=== PATIENT | male | born 2000 | race African-American/Black ===

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

== ENCOUNTER 2022-06-21 18:52 | Emergency (ER) | payer OTHER, BC ==
[2022-06-21] MEDS ORDERED: KETOROLAC 30 MG/ML INJ ONE (19:46)
--- NOTE | 2022-06-21 20:07 | RAD REPORT ---
EXAM DESCRIPTION: Ribs Right - 06/21/2022 7:58 pm CLINICAL HISTORY: Right rib pain FINDINGS: No fracture is seen
[2022-06-21] MEDS ORDERED: ACETAMINOPHEN 500 MG TAB ONE (20:08)
[2022-06-21] MEDS ORDERED: IBUPROFEN 400 MG TAB ONE (20:09)
[2022-06-21] MEDS ORDERED: IBUPROFEN 200 MG TAB PO ONE (20:09)
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
[2022-06-21 23:08] VITALS: BP 128/83; TEMP 98.7; O2SAT 100
== END 2022-06-21 21:02 | disposition home or self-care (01) ==
LOC: ER 18:52
DX: S06.0X1A Concussion with loss of consciousness of 30 minutes or less, initial encounter (principal); S23.41XA Sprain of ribs, initial encounter
CPT/HCPCS: 99284

== ENCOUNTER 2023-02-13 01:04 | Emergency (ER) | payer BC ==
[2023-02-13] MEDS ORDERED: NA CHLORIDE 0.9% 1,000 ML ONE (01:51)
[2023-02-13] MEDS ORDERED: FAMOTIDINE 20 MG/2 ML VIAL IV ONE (01:51)
[2023-02-13] MEDS ORDERED: ONDANSETRON 4 MG/2 ML VIAL ONE (01:51)
[2023-02-13 02:20] LABS: Absolute Lymphocytes (CBC) 0.9 K/uL (0.7-4.9); Hematocrit 45.9 % (39.6-49.0); Lymphocytes % 11.6 % (15.3-44.8); MCV 87.4 fL (80-100); MPV 7.6 fL (7.6-11.3); Platelets 308 thou/uL (152-406); RBC Red Blood Cell Count 5.25 M/uL (4.33-5.43)
[2023-02-13 02:36] LABS: Albumin 4.4 g/dL (3.4-5.0); Bilirubin Total 0.5 mg/dL (0.2-1.0); Potassium 4.2 mEq/L (3.5-5.1); Protein, Total 8.4 g/dL (6.4-8.2)
--- NOTE | 2023-02-13 02:51 | ER ---
Nurse's Notes [facility] Name: Jena Chowdary Age: 22 yrs Sex: Male : 2000 Arrival Date: 02/13/2023 Time: 01:04 Bed 8 Private MD: Diagnosis: Diarrhea, unspecified;Nausea with vomiting, unspecified Presentation: 02/13 01:09 Chief complaint: Patient states: generalized abdominal pain with vomiting x 3 episodes, pf1 diarrhea x 3 episodes, fever and SOB, onset 1900 tonight. 01:09 Coronavirus screen: Vaccine status: Patient reports being unvaccinated. Client denies pf1 travel out of the [place] in the last 14 days. Client presents with at least one sign or symptom that may indicate coronavirus-19. Ebola Screen: Patient negative for fever greater than or equal to 101.5 degrees Fahrenheit, and additional compatible Ebola Virus Disease symptoms. Initial Sepsis Screen: Does the patient meet any 2 criteria? No. Patient's initial sepsis screen is negative. Does the patient have a suspected source of infection? No. Patient's initial sepsis screen is negative. Risk Assessment: Do you want to hurt yourself or someone else? Patient reports no desire to harm self or others. 01:09 Method Of Arrival: Wheelchair pf1 01:09 Acuity: ALOK 3 pf1 01:47 Onset of symptoms is unknown. rv Historical: - Allergies: 01:36 No Known Allergies; pf1 - PMHx: 01:36 None; pf1 - PSHx: 01:36 None; pf1 - Immunization history:: Adult Immunizations up to date, Client reports having NOT received the Covid vaccine. Last tetanus immunization: < 5 years ago Flu vaccine is not up to date. - Social history:: Smoking status: Patient denies any tobacco usage or history of. Patient uses street drugs, marijuana, Patient/guardian denies using alcohol. Screenin:46 [facility] ED Fall Risk Assessment (Adult) History of falling in the last 3 months, rv including since admission No falls in past 3 months (0 pts) Confusion or Disorientation No (0 pts) Intoxicated or Sedated No (0 pts) Score/Fall Risk Level 3 or more points = High Risk Oriented to surroundings, Maintained a safe environment, Educated pt \T\ family on fall prevention, incl call for assistance when getting out of bed, Assessed \T\ reinforced patient's understanding of fall precautions, Provided non-skid footwear, Hourly rounding (assess needs \T\ fall precautionary measures) done, Used ambulatory aids as needed (educated on \T\ assisted with), Used gait belt as appropriate Implemented a Fall Risk Plan of Care, Apply high fall risk patient identification: yellow non skid footwear/ fall signage, Placed fall mat w/ non beveled edge next to bed, Activated bed/chair alarm, Remained w/in arm's length of patient and in sight while toileting, Offered frequent toileting (1:1 observation), Remained with patient while ambulating, Utilized family, sitter, or virtual system administration manager as indicated. Abuse screen: Denies threats or abuse. Denies injuries from another. Nutritional screening: No deficits noted. Tuberculosis screening: No symptoms or risk factors identified. Assessment: 01:45 General: Appears uncomfortable, Behavior is fussy. Pain: Complains of pain in rv generalized. Neuro: Level of Consciousness is awake, alert, obeys commands, Oriented to person, place, time, situation. Cardiovascular: Capillary refill < 3 seconds Patient's skin is warm and dry. Respiratory: Airway is patent Respiratory effort is even, unlabored. GI: Bowel sounds present X 4 quads. Abd is soft and non tender X 4 quads. Derm: Skin is intact. Vital Signs: 01:09 BP 131 / 85; Pulse 92; Resp 18; Temp 99.6(TE); Pulse Ox 100% on R/A; Weight 68.04 kg; pf1 Height 6 ft. 3 in. ; 01:46 BP 123 / 84; Pulse 79; Resp 17; Pulse Ox 100% on R/A; rv 01:09 Body Mass Index 18.75 (68.04 kg, 190.5 cm) pf1 ED Course: 01:06 Patient arrived in ED. mr 01:07 [facility] kb 01:07 Duke Messer MD is Attending Physician. kb 01:36 Triage completed. pf1 01:45 Ketan Rodríguez RN is Primary Nurse. rv 01:46 Patient has correct armband on for positive identification. Provided Education on: flu. rv 01:46 No provider procedures requiring assistance completed. Inserted saline lock: 20 gauge rv in right antecubital area, using aseptic technique. Blood collected. 01:47 Arm band placed on right wrist. rv 03:19 IV discontinued, intact, bleeding controlled, No redness/swelling at site. Pressure pf1 dressing applied. Administered Medications: 01:45 Drug: NS 0.9% IV 1000 ml IV at 1 bolus Per protocol; 1000 mL bolus Route: IV; Rate: 1 rv bolus; Site: right antecubital; 02:45 Follow up: Response: No adverse reaction; Marked relief of symptoms; IV Status: pf1 Completed infusion; IV Intake: 1000ml 01:45 Drug: Famotidine IVP 20 mg IVP once; dilute with 10 mL 0.9% NaCl; give over 2 minutes rv Route: IVP; Site: right antecubital; 02:45 Follow up: Response: No adverse reaction; Marked relief of symptoms; Pain is decreased pf1 01:45 Drug: Ondansetron IVP 4 mg IVP once; over 2 minutes Route: IVP; Site: right antecubital;rv 02:45 Follow up: Response: No adverse reaction; Marked relief of symptoms pf1 Medication: 01:46 VIS not applicable for this client. rv Intake: 02:45 IV: 1000ml; Total: 1000ml. pf1 Outcome: 02:51 Discharge ordered by . kb 03:20 Discharged to home via wheelchair, with family, pf1 03:20 Condition: improved 03:20 Discharge instructions given to patient, family, Instructed on discharge instructions, follow up and referral plans. Demonstrated understanding of instructions, follow-up care, medications, Prescriptions given X 2, 03:20 Patient left the ED. pf1 Signatures: Maia Herrera, SHANNEN-C SMALL EQUIPMENT OPERATOR-Katerine Chahal, Reg Reg mr Ketan Rodríguez, RN RN Dianna Alcaraz, TALON RN pf1
--- NOTE | 2023-02-13 02:51 | EDPHYS ---
Physician Documentation [facility] Name: Jena Chowdary Age: 22 yrs Sex: Male : 2000 Arrival Date: 02/13/2023 Time: 01:04 Bed 8 Private MD: ED Physician Duke Messer HPI: 02/13 01:47 This 22 yrs old Black Male presents to ER via Wheelchair with complaints of Flu kb Symptoms, Abdominal Pain. 01:47 The patient presents to the emergency department with nausea, vomiting, diarrhea, kb abdominal pain. Onset: The symptoms/episode began/occurred at 19:00. Possible causes: unknown. The symptoms are aggravated by nothing. The symptoms are alleviated by nothing. Associated signs and symptoms: Pertinent positives: abdominal pain, diarrhea, fever, nausea, vomiting, nasal congestion. Severity of symptoms: At their worst the symptoms were moderate in the emergency department the symptoms are unchanged. The patient has not experienced similar symptoms in the past. The patient has not recently seen a physician. Historical: - Allergies: 01:36 No Known Allergies; pf1 - PMHx: 01:36 None; pf1 - PSHx: 01:36 None; pf1 - Immunization history:: Adult Immunizations up to date, Client reports having NOT received the Covid vaccine. Last tetanus immunization: < 5 years ago Flu vaccine is not up to date. - Social history:: Smoking status: Patient denies any tobacco usage or history of. Patient uses street drugs, marijuana, Patient/guardian denies using alcohol. ROS: 01:46 Respiratory: Negative for shortness of breath, cough, wheezing, and pleuritic chest kb pain, 01:46 Constitutional: Positive for body aches, chills, fever, malaise, 01:46 ENT: Positive for sinus congestion, 01:46 Abdomen/GI: Positive for abdominal pain, nausea, vomiting, and diarrhea, 01:46 All other systems are negative, Exam: 01:46 Constitutional: This is a well developed, well nourished patient who is awake, alert, kb and in no acute distress. Head/Face: Normocephalic, atraumatic. ENT: Moist Mucous membranes Cardiovascular: Regular rate Respiratory: Respirations even and unlabored. No increased work of breathing. Talking in full sentences Skin: Warm, dry with normal turgor. Normal color. MS/ Extremity: Pulses equal, no cyanosis. Neurovascular intact. Full, normal range of motion. Neuro: Awake and alert, GCS 15, oriented to person, place, time, and situation. Moves all extremities. Normal gait. 01:46 Abdomen/GI: Inspection: abdomen appears normal, Bowel sounds: normal, Palpation: soft, in all quadrants, mild abdominal tenderness, in all quadrants, Vital Signs: 01:09 BP 131 / 85; Pulse 92; Resp 18; Temp 99.6(TE); Pulse Ox 100% on R/A; Weight 68.04 kg; pf1 Height 6 ft. 3 in. ; 01:46 BP 123 / 84; Pulse 79; Resp 17; Pulse Ox 100% on R/A; rv 01:09 Body Mass Index 18.75 (68.04 kg, 190.5 cm) pf1 MDM: 01:08 Patient medically screened. kb 01:46 Data reviewed: vital signs, nurses notes. kb 02:49 Differential diagnosis: Nonspecific abd pain, viral gastroenteritis, flu, covid. Test kb considered but Not performed: CT: CT abd considered, but pain is diffuse, no objective tenderness, nontoxic in appearance. Pt and parents educated on strict return precautions especially if pain localizes to one area. Verbal understanding received. . Historians other than the Patient: Parent: mother and father. Counseling: I had a detailed discussion with the patient and/or guardian regarding the historical points, exam findings, and any diagnostic results supporting the discharge/admit diagnosis, lab results, the need for outpatient follow up, a family practitioner, to return to the emergency department if symptoms worsen or persist or if there are any questions or concerns that arise at home. 02/13 01:18 Order name: CBC with Diff; Complete Time: 02:22 kb 02/13 01:18 Order name: CMP; Complete Time: 02:37 kb 02/13 01:18 Order name: Lipase; Complete Time: 02:37 kb 02/13 01:18 Order name: Flu; Complete Time: 02:40 kb 02/13 01:18 Order name: SARS-COV-2 RT PCR; Complete Time: 02:51 kb 02/13 01:18 Order name: IV Saline Lock; Complete Time: 01:45 kb 02/13 01:18 Order name: Labs collected and sent; Complete Time: 01:45 kb Administered Medications: 01:45 Drug: NS 0.9% IV 1000 ml IV at 1 bolus Per protocol; 1000 mL bolus Route: IV; Rate: 1 rv bolus; Site: right antecubital; 02:45 Follow up: Response: No adverse reaction; Marked relief of symptoms; IV Status: pf1 Completed infusion; IV Intake: 1000ml 01:45 Drug: Famotidine IVP 20 mg IVP once; dilute with 10 mL 0.9% NaCl; give over 2 minutes rv Route: IVP; Site: right antecubital; 02:45 Follow up: Response: No adverse reaction; Marked relief of symptoms; Pain is decreased pf1 01:45 Drug: Ondansetron IVP 4 mg IVP once; over 2 minutes Route: IVP; Site: right antecubital;rv 02:45 Follow up: Response: No adverse reaction; Marked relief of symptoms pf1 Disposition Summary: 02/13/23 02:51 Discharge Ordered Notes: Location: Home kb Condition: Stable kb Diagnosis - Diarrhea, unspecified kb - Nausea with vomiting, unspecified kb Followup: kb - With: Emergency Department - When: As needed - Reason: Worsening of condition Followup: kb - With: Private Physician - When: 2 - 3 days - Reason: Recheck today's complaints, Continuance of care, Re-evaluation by your physician Discharge Instructions: - Discharge Summary Sheet kb - Nausea and Vomiting, Adult, [id number] kb - Diarrhea, Adult, [id number] kb Forms: - Medication Reconciliation Form kb - Thank You Letter kb - Antibiotic Education kb - Prescription Opioid Use kb - Patient Portal Instructions kb - Leadership Thank You Letter kb Prescriptions: - Zofran 4 mg Oral tablet - take 1 tablet ORAL route every 6 hours As needed; 12 tablet; Refills: 0, kb Product Selection Permitted - dicyclomine 20 mg Oral tablet - take 1 tablet ORAL route 4 times per day As needed; 20 tablet; Refills: 0, kb Product Selection Permitted Signatures: Dispatcher [employer] Maia Gardner FNP-C FNP-Ketan Gould, RN RN rv Dianna Haile RN RN pf1
[2023-02-13 03:25] VITALS: TEMP 99.6; O2SAT 100
[2023-02-13 03:27] VITALS: BP 123/84
== END 2023-02-13 03:20 | disposition home or self-care (01) ==
LOC: ER 01:04
DX: R19.7 Diarrhea, unspecified (principal); R11.2 Nausea with vomiting, unspecified; Z20.822 Contact with and (suspected) exposure to COVID-19
CPT/HCPCS: 85025; 36415; 83690; 80053; 87635; 87804 ×2; J2405; J7030